=== PATIENT | male | born 1990 | race African-American/Black ===

== ENCOUNTER 2018-01-16 17:51 | Emergency (ER) | payer MEDICAID, OTHER ==
[~2018-01-16] VITALS: Ht 180.3 cm; Wt 62.0 kg
[~2018-01-16 17:51] MED LIST: IBUP800 PO
[2018-01-16 18:28] VITALS: BP 124/68; PULSE 96; RESP 18; TEMP 98.4; O2SAT 98
--- NOTE | 2018-01-16 18:37 | PD ---
HPI . Ingestion Chief Complaint: OD/ Ingestion Time Seen by Provider: 18:28 Travel History International Travel<30 days: No Contact w/Intl Traveler<30days: No History of Present Illness HPI This patient is brought here police custody for medical clearance to go to intermediate. He is claiming that he took 10 Lortab. He will not say when. He is actually telling me that he did not take anything. He further tells me that he is refusing any medical care. PFSH Social History Alcohol Use: Yes Tobacco Use: No Substance Use: No Allergies-Medications (Allergen,Severity, Reaction): Coded Allergies: No Known Allergies (Unverified , 07/08/16) Reported Meds & Prescriptions Reported Meds & Active Scripts Active Motrin 800 Mg Tab (Ibuprofen) 800 Mg Tab 800 Mg PO Q8H PRN 10 Days Review of Systems ROS Limitations: Uncooperative Physical Exam Narrative GENERAL: Awake and alert and in no acute distress. SKIN: Warm and dry. HEAD: Normocephalic/atraumatic. EYES: Pupils are equal. Extraocular movements are intact. NECK: Normal range of motion. RESPIRATORY: Nonlabored respirations. MUSCULOSKELETAL: Atraumatic. NEUROLOGICAL: Nonfocal. Lucid. ANO 3. PSYCHIATRIC: Appropriate mood and affect. MDM Medical Decision Making Medical Screen Exam Complete: Yes Emergency Medical Condition: Yes Differential Diagnosis Differential diagnosis includes but is not limited to factitious report, insignificant ingestion, accidental ingestion, ingestion with significant sequelae Narrative Course This patient presented to us in police custody for a possible ingestion. The patient is refusing medical care. He is awake and alert and fully oriented and capable of refusing medical care AMA: The risks of leaving against medical advice without further evaluation treatment were discussed with the patient. These risks include cardiac dysfunction, cardiac dysrhythmia, possible heart attack, possible stroke or . The patient indicated understanding of these risks and appeared to have the capacity to make this decision. Diagnosis Primary Impression: Medical clearance for incarceration Disposition: 07 AGAINST MEDICAL ADVICE Condition: Stable Selin Corrales MD Jan 16, 2018 18:37
== END 2018-01-17 07:12 | disposition left against medical advice (07) ==
LOC: NEPC 17:51
DX: Z03.89 Encounter for observation for other suspected diseases and conditions ruled out (principal)
CPT/HCPCS: 99281